=== PATIENT | male | born 1965 | race Caucasian/White ===

== ENCOUNTER 2016-08-27 14:28 | Emergency (ER) | payer MEDICAID ==
[2016-08-27] MEDS ORDERED: SODIUM CHLORIDE 0.9% 1,000 ML ONE (15:07)
[2016-08-27 15:14] LABS: ABSOLUTE NEUTROPHIL COUNT 4.1 K/mm3 (1.8-7.7); BASO % 0.6 % (0.2-1.0); EOS % 0.2 % (0.9-2.9); HEMATOCRIT 40.4 % (32.0-52.0); IMM NEUT% 0.6 % (0-1); LYMPH # 1.9 (1.0-4.8); LYMPH % 29.2 % (15-45); MEAN CELL VOLUME 92.2 fl (80.0-94.0); MEAN CORPUSCULAR HEMOGLOBIN 29.7 pg (27.0-31.0); MEAN CORPUSCULAR HGB CONC 32.2 g/dl (33.0-37.0); MEAN PLATELET VOLUME 10.1 fl (7.4-10.4); MONO # 0.5 (0.0-0.8); MONO % 7.6 % (4-12); NEUT % 61.8 % (43-75); PLATELET COUNT 231 K/mm3 (130-400); RED CELL DISTRIBUTION WIDTH 12.9 % (11.5-14.5)
[2016-08-27 15:29] LABS: ALB/GLOB RATIO 1.5 (>1.0); ALBUMIN 4.2 gm/dL (3.5-5.7); CALCIUM 9.4 mg/dL (8.6-10.3)
[2016-08-27 16:12] LABS: URINE BILIRUBIN NEGATIVE (NEGATIVE); URINE BLOOD NEGATIVE (NEGATIVE); URINE GLUCOSE (UA) NEGATIVE (NEGATIVE); URINE LEUKOCYTE ESTERASE NEGATIVE (NEGATIVE); URINE NITRITE NEGATIVE (NEGATIVE); URINE PROTEIN 1+ (NEGATIVE); URINE UROBILINOGEN NORMAL (0-1 mg/dl)
[2016-08-27] MEDS ORDERED: PHENYTOIN SODIUM 100 MG PO SCH (16:15)
[2016-08-27 16:16] LABS: URINE APPEARANCE CLEAR; URINE COLOR YELLOW
[2016-08-27] MEDS ORDERED: PHENYTOIN SODIUM 100 MG ONE (16:18)
[2016-08-27 16:32] LABS: AMPHETAMINES/METHAMPHETAMINES NEGATIVE (NEGATIVE); COCAINE NEGATIVE (NEGATIVE); MARIJUANA NEGATIVE (NEGATIVE); METHADONE NEGATIVE (NEGATIVE); OPIATES POSITIVE (NEGATIVE); TRICYCLIC ANTIDEPRESSANTS NEGATIVE (NEGATIVE)
[2016-08-27 16:55] LABS: URINE BACTERIA 0; URINE EPITHELIAL CELLS RARE /hpf; URINE RBC RARE /hpf; URINE WBC NEG /hpf
--- NOTE | 2016-08-27 17:34 | CT ---
HEAD W/O CON COMPARISON: None HISTORY: Seizure. Alcohol withdrawal. TECHNIQUE: Using a [employer] [address] scanner, images were obtained through the head. An automated dose reduction technique was used to minimize patient radiation dose. DOSE INFORMATION: CTDIvol (mGy): 51.70 DLP(mGycm): 938.90 FINDINGS: Mass: None Intracranial Hemorrhage: None Acute Infarction: None Cerebral hemispheres: Normal Basal ganglia: Normal Thalami: Normal Brainstem: Normal Cerebellum: Normal Ventricles: Normal Basilar cisterns: Normal Corpus callosum: Normal Pituitary fossa: Normal Middle ears and mastoid air cells: Normal Orbits and sinuses: Normal Skull and scalp: Normal Dural sinuses and vessels: Normal IMPRESSION: Normal study. The report was sent to the emergency department electronic medical record system 08/27/2016 at 17:35.
== END 2016-08-27 17:59 | disposition home or self-care (01) ==
LOC: ED 14:28
DX: R56.9 Unspecified convulsions (principal); F10.10 Alcohol abuse, uncomplicated; Y90.9 Presence of alcohol in blood, level not specified; F17.210 Nicotine dependence, cigarettes, uncomplicated; Z79.899 Other long term (current) drug therapy
CPT/HCPCS: 83690; 82150; 85025; 82550; 80305; 80053; 80307; 81001; 70450; 99284 ×2; 96360; A9270 ×2; J7030